=== PATIENT | male | born 1935 | race Caucasian/White ===

== ENCOUNTER 2018-03-26 14:15 | Inpatient (IN) | payer MEDICARE, OTHER ==
[~2018-03-26] VITALS: Ht 170.2 cm; Wt 68.5 kg
[2018-03-26 15:30] VITALS: BP 153/59
[2018-03-26] MEDS ORDERED: ACETAMINOPHEN 325 MG TABLET PO PRN ×2 (16:45)
[2018-03-26] MEDS ORDERED: TEMAZEPAM 15 MG CAPSULE PO PRN (16:45)
[2018-03-26 17:48] LABS: GLUCOMETER DEV NAME(LOC) 2WR 2E; GLUCOSE,POINT OF CARE 116 MG/DL (70-110)
[2018-03-26] MEDS: DOCUSATE SODIUM 100 MG CAPSULE PO SCH ×2 (21:00→21:24)
[2018-03-26] MEDS: SENNA 187 MG TABLET PO SCH ×2 (21:00→21:24)
[2018-03-26 21:12] VITALS: BP 153/55
[2018-03-26] MEDS: ROSUVASTATIN CALCIUM 20 MG TABLET PO SCH (21:24)
[2018-03-26] MEDS: LATANOPROST 0.005% 2.5 ML OPHTHALMIC SOLUTION OD SCH (21:24)
[2018-03-26 22:08] LABS: GLUCOMETER DEV NAME(LOC) 2WR 2E; GLUCOSE,POINT OF CARE 229 MG/DL (70-110)
[2018-03-26 22:58] LABS: APPEARANCE,URINE CLEAR (CLEAR); BILIRUBIN,URINE NEGATIVE (NEGATIVE); GLUCOSE, URINE (UA) NEGATIVE (NEGATIVE); KETONES,URINE NEGATIVE (NEGATIVE); LEUKOCYTE ESTERASE ,URINE NEGATIVE (NEGATIVE); NITRATE,URINE NEGATIVE (NEGATIVE); OCCULT BLOOD,URINE TRACE (NEGATIVE); PH,URINE 6.5 (5.0-8.0); PROTEIN,URINE POS 1+ (NEGATIVE); UROBILINOGEN,URINE 0.2 mg/dL (<=1.0)
[2018-03-26] MEDS ORDERED: DEXTROSE 50%-WATER 25 GM/50 ML SYRINGE IVP PRN (23:00)
[2018-03-26] MEDS: INSULIN LISPRO 100 UNITS/ML SQ PRN (23:02)
[2018-03-27 00:04] LABS: BACTERIA,URINE Rare /HPF (None Seen); SQUAMOUS EPITHELIAL CELL,UR Few /LPF (None Seen); WBC,URINE 0-2 /HPF (0-5); YEAST,URINE Rare /HPF (None Seen)
[2018-03-27 00:46] VITALS: BP 161/74
[2018-03-27 06:00] VITALS: BP 146/66
[2018-03-27 06:23] LABS: GLUCOMETER DEV NAME(LOC) 2WR 1B; GLUCOSE,POINT OF CARE 104 MG/DL (70-110)
[2018-03-27 06:23] LABS: GLUCOMETER DEV NAME(LOC) 2WR 1B; GLUCOSE,POINT OF CARE 60 MG/DL (70-110)
[2018-03-27 07:19] LABS: BASOPHILS % (AUTO) 0.3 % (0.0-2.0); EOSINOPHILS % (AUTO) 0.1 % (1.0-6.0); HEMATOCRIT 22.4 % (41-53); HEMOGLOBIN 7.7 g/dL (13.5-17.5); LYMPHOCYTES % (AUTO) 6.3 % (22.0-44.0); MEAN CORPUSCULAR HEMOGLOBIN 30.5 pg (26.0-34.0); MEAN CORPUSCULAR HGB CONC 34.1 G/dL (31.0-37.0); MEAN CORPUSCULAR VOLUME 89 fL (80-100); MONOCYTES # (AUTO) 1.6 K/uL (0.1-1.0); MONOCYTES % (AUTO) 9.7 % (2.0-9.0); NEUTROPHILS # (AUTO) 13.6 K/uL (1.8-7.7); NEUTROPHILS % (AUTO) 83.6 % (40.0-70.0); PLATELET COUNT (AUTO) 323 K/uL (150-450); RED BLOOD CELL COUNT(AUTO) 2.51 MIL/uL (4.50-5.90); RED CELL DISTRIBUTION WIDTH 15.1 % (11.5-14.5)
[2018-03-27 07:43] LABS: ALANINE AMINOTRANSFERASE 37 U/L (12-78); ALBUMIN 2.7 g/dL (3.4-5.0); ALKALINE PHOSPHATASE 96 U/L (46-116); ANION GAP 8 mmol/L (8-16); ASPARTATE AMINOTRANSFERASE 39 U/L (15-37); BILIRUBIN,TOTAL 0.8 mg/dL (0.1-1.0); CALCIUM, TOTAL 8.1 mg/dL (8.8-10.5); CARBON DIOXIDE 27 mmol/L (22-29); CHLORIDE 99 mmol/L (98-107); CREATININE 1.07 mg/dL (0.60-1.30); GLOMERULAR FILTR. RATE CALC > 60 mL/min (>60); GLUCOSE,RANDOM 128 mg/dL (70-110); POTASSIUM 3.2 mmol/L (3.5-5.1); SODIUM SERUM 134 mmol/L (136-145); TOTAL PROTEIN, SERUM 7.3 g/dL (6.4-8.2); UREA NITROGEN, BLOOD 19 mg/dL (7-18)
[2018-03-27] MEDS ORDERED: POTASSIUM CHLORIDE 20 MEQ ER TABLET PO ONE (08:15)
[2018-03-27 08:30] VITALS: BP 150/57
[2018-03-27] MEDS: DOXAZOSIN MESYLATE 2 MG TABLET PO SCH (08:59)
[2018-03-27] MEDS: DOCUSATE SODIUM 100 MG CAPSULE PO SCH (08:59)
[2018-03-27] MEDS: PredniSONE 20 MG TABLET PO SCH (08:59)
[2018-03-27] MEDS: ASPIRIN 81 MG CHEWABLE TABLET PO SCH (09:00)
[2018-03-27] MEDS ORDERED: HEPARIN SODIUM,PORCINE 5,000 UNITS/ML VIAL SQ SCH (09:00)
[2018-03-27] MEDS ORDERED: PANTOPRAZOLE SODIUM 40 MG DR TABLET PO SCH (09:00)
[2018-03-27] MEDS: DONEPEZIL HCL 10 MG TABLET PO SCH (09:00)
[2018-03-27] MEDS: CLOPIDOGREL BISULFATE 75 MG TABLET PO SCH (09:00)
[2018-03-27] MEDS: AmLODIPine BESYLATE 10 MG TABLET PO SCH (09:01)
[2018-03-27] MEDS: TELMISARTAN 40 MG TABLET PO SCH (09:01)
[2018-03-27] MEDS: METOPROLOL SUCCINATE 25 MG ER TABLET PO SCH (09:02)
[2018-03-27] MEDS: SERTRALINE HCL 100 MG TABLET PO SCH (09:02)
[2018-03-27] MEDS: ISOSORBIDE MONONITRATE 30 MG ER TABLET PO SCH (09:03)
[2018-03-27] MEDS ORDERED: DOCUSATE SODIUM 100 MG CAPSULE PO PRN (10:30)
[2018-03-27 12:58] LABS: GLUCOMETER DEV NAME(LOC) 2WR 1B; GLUCOSE,POINT OF CARE 150 MG/DL (70-110)
[2018-03-27] MEDS: INSULIN LISPRO 100 UNITS/ML SQ PRN ×3 (13:12→21:25)
[2018-03-27 15:45] VITALS: BP 150/51
[2018-03-27 18:13] LABS: GLUCOMETER DEV NAME(LOC) 2WR 1B; GLUCOSE,POINT OF CARE 292 MG/DL (70-110)
[2018-03-27 18:57] VITALS: BP 150/51
[2018-03-27] MEDS ORDERED: INSULIN GLARGINE,HUM.REC.ANLOG 100 UNITS/ML SQ SCH (21:00)
[2018-03-27] MEDS: ROSUVASTATIN CALCIUM 20 MG TABLET PO SCH (21:01)
[2018-03-27] MEDS: LATANOPROST 0.005% 2.5 ML OPHTHALMIC SOLUTION OD SCH (21:02)
[2018-03-27 22:03] LABS: GLUCOMETER DEV NAME(LOC) 2WR 2E; GLUCOSE,POINT OF CARE 216 MG/DL (70-110)
[2018-03-27 23:19] VITALS: BP 133/57
[2018-03-28] MEDS ORDERED: MULT-1259 PO (01:53)
[2018-03-28] MEDS ORDERED: ASPI81 PO (01:53)
[2018-03-28] MEDS ORDERED: FINA5TAB41 PO (01:53)
[2018-03-28 05:49] LABS: GLUCOMETER DEV NAME(LOC) 2WR 1B; GLUCOSE,POINT OF CARE 99 MG/DL (70-110)
[2018-03-28 06:37] LABS: BASOPHILS % (AUTO) 0.1 % (0.0-2.0); EOSINOPHILS % (AUTO) 0.1 % (1.0-6.0); HEMATOCRIT 21.5 % (41-53); HEMOGLOBIN 7.3 g/dL (13.5-17.5); LYMPHOCYTES % (AUTO) 6.9 % (22.0-44.0); MEAN CORPUSCULAR HEMOGLOBIN 30.4 pg (26.0-34.0); MEAN CORPUSCULAR VOLUME 89 fL (80-100); MONOCYTES # (AUTO) 1.4 K/uL (0.1-1.0); MONOCYTES % (AUTO) 9.1 % (2.0-9.0); NEUTROPHILS # (AUTO) 12.6 K/uL (1.8-7.7); NEUTROPHILS % (AUTO) 83.8 % (40.0-70.0); PLATELET COUNT (AUTO) 291 K/uL (150-450); RED CELL DISTRIBUTION WIDTH 14.9 % (11.5-14.5)
[2018-03-28 06:56] LABS: CALCIUM, TOTAL 7.5 mg/dL (8.8-10.5); CREATININE 1.27 mg/dL (0.60-1.30); POTASSIUM 3.5 mmol/L (3.5-5.1)
[2018-03-28 07:44] VITALS: BP 157/80
[2018-03-28] MEDS: CLOPIDOGREL BISULFATE 75 MG TABLET PO SCH (08:42)
[2018-03-28] MEDS: METOPROLOL SUCCINATE 25 MG ER TABLET PO SCH (08:42)
[2018-03-28] MEDS: AmLODIPine BESYLATE 10 MG TABLET PO SCH (08:42)
[2018-03-28] MEDS: ISOSORBIDE MONONITRATE 30 MG ER TABLET PO SCH (08:42)
[2018-03-28] MEDS: DOXAZOSIN MESYLATE 2 MG TABLET PO SCH (08:43)
[2018-03-28] MEDS: SERTRALINE HCL 100 MG TABLET PO SCH (08:43)
[2018-03-28] MEDS: PredniSONE 20 MG TABLET PO SCH (08:43)
[2018-03-28] MEDS: DONEPEZIL HCL 10 MG TABLET PO SCH (08:43)
[2018-03-28] MEDS: ASPIRIN 81 MG CHEWABLE TABLET PO SCH (08:43)
[2018-03-28] MEDS: TELMISARTAN 40 MG TABLET PO SCH (08:44)
[2018-03-28] MEDS: PANTOPRAZOLE SODIUM 40 MG DR TABLET PO SCH ×2 (08:46→21:14)
[2018-03-28] MEDS: SULFAMETHOX/TRIMETH DS 800-160 MG/TABLET PO SCH (08:57)
[2018-03-28] MEDS ORDERED: FAMOTIDINE 20 MG TABLET PO SCH (09:00)
[2018-03-28 12:20] LABS: GLUCOMETER DEV NAME(LOC) 2WR 1B; GLUCOSE,POINT OF CARE 216 MG/DL (70-110)
[2018-03-28] MEDS: INSULIN LISPRO 100 UNITS/ML SQ PRN ×3 (13:07→21:16)
[2018-03-28 13:21] VITALS: BP 151/88
[2018-03-28 15:30] VITALS: BP 143/55
[2018-03-28 17:51] LABS: GLUCOMETER DEV NAME(LOC) 2WR 2E; GLUCOSE,POINT OF CARE 311 MG/DL (70-110)
[2018-03-28] MEDS: TAMSULOSIN HCL 0.4 MG CAPSULE PO SCH (21:14)
[2018-03-28] MEDS: LATANOPROST 0.005% 2.5 ML OPHTHALMIC SOLUTION OD SCH (21:14)
[2018-03-28] MEDS: ROSUVASTATIN CALCIUM 20 MG TABLET PO SCH (21:15)
[2018-03-28 21:54] LABS: GLUCOMETER DEV NAME(LOC) 2WR 1B; GLUCOSE,POINT OF CARE 204 MG/DL (70-110)
[2018-03-29 01:39] VITALS: BP 136/66
[2018-03-29 03:08] VITALS: BP 136/50
[2018-03-29 06:23] LABS: GLUCOMETER DEV NAME(LOC) 2WR 2E; GLUCOSE,POINT OF CARE 117 MG/DL (70-110)
[2018-03-29 06:46] LABS: BASOPHILS % (AUTO) 0.1 % (0.0-2.0); EOSINOPHILS % (AUTO) 0 % (1.0-6.0); HEMATOCRIT 22.3 % (41-53); HEMOGLOBIN 7.6 g/dL (13.5-17.5); LYMPHOCYTES # (AUTO) 0.8 K/uL (1.0-4.8); LYMPHOCYTES % (AUTO) 5.2 % (22.0-44.0); MEAN CORPUSCULAR HEMOGLOBIN 30.2 pg (26.0-34.0); MEAN CORPUSCULAR HGB CONC 33.9 G/dL (31.0-37.0); MEAN CORPUSCULAR VOLUME 89 fL (80-100); MONOCYTES # (AUTO) 1.3 K/uL (0.1-1.0); MONOCYTES % (AUTO) 8.3 % (2.0-9.0); NEUTROPHILS # (AUTO) 13.9 K/uL (1.8-7.7); PLATELET COUNT (AUTO) 292 K/uL (150-450); RED CELL DISTRIBUTION WIDTH 14.7 % (11.5-14.5)
[2018-03-29 06:49] LABS: NEUTROPHILS % (AUTO) 86.4 % (40.0-70.0)
[2018-03-29 07:02] LABS: CALCIUM, TOTAL 7.5 mg/dL (8.8-10.5); CREATININE 1.46 mg/dL (0.60-1.30); POTASSIUM 3.5 mmol/L (3.5-5.1)
[2018-03-29 07:40] VITALS: BP 145/57
[2018-03-29] MEDS: ISOSORBIDE MONONITRATE 30 MG ER TABLET PO SCH (08:31)
[2018-03-29] MEDS: TELMISARTAN 40 MG TABLET PO SCH (08:31)
[2018-03-29] MEDS: METOPROLOL SUCCINATE 25 MG ER TABLET PO SCH (08:31)
[2018-03-29] MEDS: ISOSORB DINIT/HYDRALAZINE HCL 20-37.5 MG TABLET PO SCH ×2 (08:31→20:55)
[2018-03-29] MEDS: DONEPEZIL HCL 10 MG TABLET PO SCH (08:32)
[2018-03-29] MEDS: DOXAZOSIN MESYLATE 2 MG TABLET PO SCH (08:32)
[2018-03-29] MEDS: AmLODIPine BESYLATE 10 MG TABLET PO SCH (08:32)
[2018-03-29] MEDS: PredniSONE 20 MG TABLET PO SCH (08:33)
[2018-03-29] MEDS: SERTRALINE HCL 100 MG TABLET PO SCH (08:33)
[2018-03-29] MEDS: ASPIRIN 81 MG CHEWABLE TABLET PO SCH (08:33)
[2018-03-29] MEDS: PANTOPRAZOLE SODIUM 40 MG DR TABLET PO SCH ×2 (08:34→20:55)
[2018-03-29] MEDS: CHOLECALCIFEROL (VIT D3) 1,000 UNITS TABLET PO SCH (11:02)
[2018-03-29] MEDS: CALCIUM CARBONATE 500 MG CHEWABLE TABLET CHEW SCH ×2 (11:02→20:55)
[2018-03-29 12:42] LABS: GLUCOMETER DEV NAME(LOC) 2WR 2E; GLUCOSE,POINT OF CARE 321 MG/DL (70-110)
[2018-03-29] MEDS: INSULIN LISPRO 100 UNITS/ML SQ PRN ×3 (13:03→21:08)
[2018-03-29 15:46] VITALS: BP 142/49
[2018-03-29 17:35] LABS: GLUCOMETER DEV NAME(LOC) 2WR 1B; GLUCOSE,POINT OF CARE 167 MG/DL (70-110)
[2018-03-29] MEDS: ROSUVASTATIN CALCIUM 20 MG TABLET PO SCH (20:55)
[2018-03-29] MEDS: TAMSULOSIN HCL 0.4 MG CAPSULE PO SCH (20:55)
[2018-03-29] MEDS: LATANOPROST 0.005% 2.5 ML OPHTHALMIC SOLUTION OD SCH (20:56)
[2018-03-29 21:53] LABS: GLUCOMETER DEV NAME(LOC) 2WR 1B; GLUCOSE,POINT OF CARE 201 MG/DL (70-110)
[2018-03-30 00:50] VITALS: BP 144/53
[2018-03-30 06:15] LABS: GLUCOMETER DEV NAME(LOC) 2WR 2E; GLUCOSE,POINT OF CARE 109 MG/DL (70-110)
[2018-03-30 06:33] LABS: BASOPHILS % (AUTO) 0.4 % (0.0-2.0); EOSINOPHILS % (AUTO) 0.1 % (1.0-6.0); HEMATOCRIT 21.3 % (41-53); HEMOGLOBIN 7.3 g/dL (13.5-17.5); LYMPHOCYTES # (AUTO) 1.1 K/uL (1.0-4.8); LYMPHOCYTES % (AUTO) 5.9 % (22.0-44.0); MEAN CORPUSCULAR HEMOGLOBIN 30.4 pg (26.0-34.0); MEAN CORPUSCULAR HGB CONC 34.3 G/dL (31.0-37.0); MEAN CORPUSCULAR VOLUME 89 fL (80-100); MONOCYTES # (AUTO) 1.2 K/uL (0.1-1.0); MONOCYTES % (AUTO) 6.4 % (2.0-9.0); NEUTROPHILS # (AUTO) 15.7 K/uL (1.8-7.7); PLATELET COUNT (AUTO) 261 K/uL (150-450); RED BLOOD CELL COUNT(AUTO) 2.41 MIL/uL (4.50-5.90); RED CELL DISTRIBUTION WIDTH 14.9 % (11.5-14.5)
[2018-03-30 06:52] LABS: NEUTROPHILS % (AUTO) 87.2 % (40.0-70.0)
[2018-03-30 06:55] VITALS: BP 137/56
[2018-03-30 06:55] LABS: CALCIUM, TOTAL 7.5 mg/dL (8.8-10.5); CREATININE 1.42 mg/dL (0.60-1.30); POTASSIUM 3.9 mmol/L (3.5-5.1)
[2018-03-30] MEDS: PANTOPRAZOLE SODIUM 40 MG DR TABLET PO SCH (07:06)
[2018-03-30 07:30] VITALS: BP 137/55
[2018-03-30 07:35] LABS: MAGNESIUM 2.4 mg/dL (1.80-2.40)
[2018-03-30 07:40] LABS: ABG A-A DIFF O2 603.9 mmHg (10-20.0); ABG BASE EXCESS -1.5 mmol/L (-2.0-3.0); ABG CARBOXYHEMOGLOBIN 0.9 % (0.0-1.5); ABG HCO3 23.5 mmol/L (22.0-26.0); ABG METHEMOGLOBIN 0.3 % (0.0-1.5); ABG OXYGEN CONTENT 10.3 mL/dL (15.0-23.0); ABG OXYGEN SATURATION 95.4 % (95.0-98.0); ABG OXYHEMOGLOBIN 94.3 % (94.0-100.0); ABG PCO2 31 mmHg (35-45); ABG PH 7.472 (7.35-7.450); PO2, ARTERIAL BG 79.1 mmHg (71.0-79.0); SOURCE, BLOOD GAS ARTERIAL; TEMPERATURE, FAHRENHEIT, BG 97.9 FAHREN (96.0-98.6)
[2018-03-30 07:41] LABS: ABG TOTAL HEMOGLOBIN 7.7 G/dL (12.0-18.0); O2 DEVICE,BLOOD GAS NON REBREATHER (ROOM AIR); SITE, BLOOD GAS RT RADIAL
[2018-03-30] MEDS ORDERED: PredniSONE 20 MG TABLET PO SCH (09:00)
[2018-03-30] MEDS ORDERED: EPOETIN ALFA 10,000 UNITS/ML VIAL SQ SCH (09:00)
[2018-03-30] MEDS: SULFAMETHOX/TRIMETH DS 800-160 MG/TABLET PO SCH (09:23)
[2018-03-30] MEDS: CALCIUM CARBONATE 500 MG CHEWABLE TABLET CHEW SCH (09:23)
[2018-03-30] MEDS: DOXAZOSIN MESYLATE 2 MG TABLET PO SCH (09:23)
[2018-03-30] MEDS: CHOLECALCIFEROL (VIT D3) 1,000 UNITS TABLET PO SCH (09:23)
[2018-03-30] MEDS: DONEPEZIL HCL 10 MG TABLET PO SCH (09:23)
[2018-03-30] MEDS: ISOSORB DINIT/HYDRALAZINE HCL 20-37.5 MG TABLET PO SCH (09:23)
[2018-03-30] MEDS: AmLODIPine BESYLATE 10 MG TABLET PO SCH (09:23)
[2018-03-30] MEDS: METOPROLOL SUCCINATE 25 MG ER TABLET PO SCH (09:23)
[2018-03-30] MEDS: ISOSORBIDE MONONITRATE 30 MG ER TABLET PO SCH (09:24)
[2018-03-30] MEDS: SERTRALINE HCL 100 MG TABLET PO SCH (09:24)
[2018-03-30] MEDS: TELMISARTAN 40 MG TABLET PO SCH (09:24)
[2018-03-30] MEDS: ASPIRIN 81 MG CHEWABLE TABLET PO SCH (09:30)
[2018-03-30] MEDS ORDERED: FERROUS GLUCONATE 324 MG TABLET PO SCH (09:45)
[2018-03-30 11:20] VITALS: BP 122/48
[2018-03-30 12:15] LABS: GLUCOMETER DEV NAME(LOC) 2WR 1B; GLUCOSE,POINT OF CARE 275 MG/DL (70-110)
[2018-03-30] MEDS ORDERED: PANTOPRAZOLE SODIUM 40 MG/VIAL IVP SCH (21:00)
[2018-04-01] MEDS ORDERED: EPOETIN ALFA 10,000 UNITS/ML VIAL SQ SCH (09:00)
[2018-04-03] MEDS ORDERED: PredniSONE 20 MG TABLET PO SCH (09:00)
== END 2018-03-30 12:15 | disposition short-term general hospital (02) | DRG 193 ==
LOC: 2WR 14:15
PROVIDERS: ADMIT Physical Medicine & Rehabilitation; ATTEND Physical Medicine & Rehabilitation
DX: J18.1 Lobar pneumonia, unspecified organism (principal); J96.01 Acute respiratory failure with hypoxia; E43 Unspecified severe protein-calorie malnutrition; N17.0 Acute kidney failure with tubular necrosis; A41.9 Sepsis, unspecified organism; J44.0 Chronic obstructive pulmonary disease with (acute) lower respiratory infection; B35.1 Tinea unguium; D63.8 Anemia in other chronic diseases classified elsewhere; E11.22 Type 2 diabetes mellitus with diabetic chronic kidney disease; E78.5 Hyperlipidemia, unspecified; F03.90 Unspecified dementia, unspecified severity, without behavioral disturbance, psychotic disturbance, mood disturbance, and anxiety; F43.10 Post-traumatic stress disorder, unspecified; F32.9 Major depressive disorder, single episode, unspecified; H54.62 Unqualified visual loss, left eye, normal vision right eye; H91.93 Unspecified hearing loss, bilateral; E11.51 Type 2 diabetes mellitus with diabetic peripheral angiopathy without gangrene; I12.9 Hypertensive chronic kidney disease with stage 1 through stage 4 chronic kidney disease, or unspecified chronic kidney disease; I25.10 Atherosclerotic heart disease of native coronary artery without angina pectoris; N18.3 Chronic kidney disease, stage 3 (moderate); I25.2 Old myocardial infarction; Z95.5 Presence of coronary angioplasty implant and graft; Z88.8 Allergy status to other drugs, medicaments and biological substances; Z79.899 Other long term (current) drug therapy; Z79.82 Long term (current) use of aspirin; Z85.46 Personal history of malignant neoplasm of prostate; Z87.891 Personal history of nicotine dependence; Z87.01 Personal history of pneumonia (recurrent); Z92.3 Personal history of irradiation; Z68.23 Body mass index [BMI] 23.0-23.9, adult
CPT/HCPCS: 71250; 82271; 82805; 83735; 84100; 87081; 92610; 93005; 97110; 97116; 97161; 97166; 97530; 97535; 99366; G0238; J0885; J1644; J1815